=== PATIENT | male | born 1995 | race Hispanic/Latino ===

== ENCOUNTER 2019-08-30 17:30 | Emergency (ER) | payer OTHER ==
[2019-08-30] MEDS: NITROGLYCERIN 0.4 MG 25 EA TAB SL ONE (17:48)
[2019-08-30] MEDS: ONDANSETRON INJ 4 MG/2 ML VIAL IV ONE (17:50)
[2019-08-30 17:51] VITALS: O2SAT 99
[2019-08-30] MEDS: SODIUM CHLORIDE 0.9% (FLUSH) 10 ML SYG IV PRN (17:56)
[2019-08-30] MEDS: ASPIRIN TABLET 325 MG TAB PO ONE (17:57)
--- NOTE | 2019-08-30 18:00 | RAD ---
EXAM DESCRIPTION: Chest,1 View CLINICAL HISTORY: 23 years Female sob/cp COMPARISON: None TECHNIQUE: Portable AP view of the chest is obtained. FINDINGS IN THE CHEST: Heart: Allowing for magnification factors related to AP portable technique and body habitus, the heart is normal in size and configuration. Vasculature: [] There is no evidence of aortic aneurysm or acute findings. The pulmonary vascularity is normal. Mediastinum: No evidence of mass or adenopathy. Lungs: There is no focal consolidation in the lungs. Pleura: There are no pleural effusions. There are no pneumothoraces. Osseous structures: No evidence of acute fracture or other significant osseous abnormalities. Tubes and catheters: None Chest wall: Unremarkable. Visualized Abdomen: Unremarkable. IMPRESSION: NO SIGNIFICANT RADIOGRAPHIC ABNORMALITIES IN THE CHEST. Remainder of findings as described above. Electronically signed by: Kerry Raya MD 08/30/2019 5:59 PM EDUCATIONAL TECHNICIAN
--- NOTE | 2019-08-30 18:24 | ED.PDOC ---
History of Present Illness - General Chief Complaint: Chest Pain/AL Stated Complaint: shortness of breath and palpitations Time Seen by Provider: 08/30/19 17:36 Source: patient, RN notes reviewed, Vital Signs reviewed, family - , police Exam Limitations: no limitations - History of Present Illness Initial Comments: patient is a 23-year-old male who presents with complaints of acute onset of shortness of breath closely followed by chest tightness and generalized weakness. Patient was returning from a class in [place], when he had acute onset shortness of breath with associated palpitations and then came chest tightness. The tightness did not radiate. It was substernal. It was no associated nausea, vomiting, diarrhea, headache or diaphoresis. Timing/Duration: 1 hour Severity: moderate Improving Factors: nothing Worsening Factors: nothing Associated Symptoms: chest pain, shortness of breath, weakness Allergies/Adverse Reactions: Allergies NO KNOWN ALLERGY Allergy (Verified 08/30/19 17:35) Home Medications: Ambulatory Orders Magnesium [Magnesium 400 mg] 1 tab PO DAILY #3 tab 08/30/19 Potassium Chloride [K-Tab] 40 meq PO DAILY #6 tab 08/30/19 Review of Systems - Review of Systems Constitutional: States: see HPI, weakness EENTM: States: no symptoms reported, see HPI Respiratory: States: see HPI, short of breath Gastrointestinal/Abdominal: States: see HPI, abdominal pain Genitourinary: States: no symptoms reported Musculoskeletal: States: no symptoms reported Skin: States: no symptoms reported Neurological: States: anxiety, tingling - hands and feet Endocrine: States: no symptoms reported Hematologic/Lymphatic: States: no symptoms reported All other Systems: Reviewed and Negative Past Medical History (General) - Patient Medical History Hx Seizures: No Hx Stroke: No Hx of COPD: No Hx Cardiac Disorders: No Hx Congestive Heart Failure: No Hx Thyroid Disease: No Hx Renal Disease: No Surgical History: no surgical history - Social History Hx Tobacco Use: No Family Medical History - Family History Mother Family History: Unknown Physical Exam - Physical Exam General Appearance: Alert, Anxious, Well Developed, Well Groomed, Well Hydrated, Well Nourished Eye Exam: bilateral normal Ears, Nose, Throat: hearing grossly normal, normal ENT inspection, normal pharynx Neck: non-tender, full range of motion, supple, normal inspection Respiratory: chest non-tender, lungs clear, normal breath sounds, no respiratory distress, no accessory muscle use Cardiovascular/Chest: normal peripheral pulses, regular rate, rhythm, no edema, no gallop, no JVD, no murmur Peripheral Pulses: radial,right: 2+, radial,left: 2+ Back Exam: normal inspection, no CVA tenderness, no vertebral tenderness Extremity: normal range of motion, non-tender, normal inspection, no pedal edema, no calf tenderness 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 08/30/19 19:39 Patient is markedly improved. It appears that his palpitations may have been caused by hypomagnesemia and hypokalemia. Patient has been repleted here in the ED and is improved. Plan discharge home with follow-up PCP. I've discussed the plan of care with the patient he voices understanding and agreement. Barvo Padilla M.D. #[id number] - Results/Orders Results/Orders: EXAM DESCRIPTION: Chest,1 View CLINICAL HISTORY: 23 years Female sob/cp COMPARISON: None TECHNIQUE: Portable AP view of the chest is obtained. FINDINGS IN THE CHEST: Heart: Allowing for magnification factors related to AP portable technique and body habitus, the heart is normal in size and configuration. Vasculature: [] There is no evidence of aortic aneurysm or acute findings. The pulmonary vascularity is normal. Mediastinum: No evidence of mass or adenopathy. Lungs: There is no focal consolidation in the lungs. Pleura: There are no pleural effusions. There are no pneumothoraces. Osseous structures: No evidence of acute fracture or other significant osseous abnormalities. Tubes and catheters: None Chest wall: Unremarkable. Visualized Abdomen: Unremarkable. IMPRESSION: NO SIGNIFICANT RADIOGRAPHIC ABNORMALITIES IN THE CHEST. Remainder of findings as described above. Electronically signed by: Kerry Raya MD 08/30/2019 5:59 PM 08/30/19 17:36 Telemetry .ONCE Sodium Chloride 0.9% (Flush) [Saline Flush Syringe] 10 ml IV PRN PRN EKG Stat Pulse Ox Stat Laboratory Results - last 24 hr 12/18/19 17:40 WBC 10.1 RBC 5.30 Hgb 15.6 Hct 46.4 MCV 87.5 MCH 29.4 MCHC 33.6 RDW 13.8 Plt Count 297 MPV 9.0 Absolute Neuts (auto) 4.00 Absolute Lymphs (auto) 4.70 H Absolute Monos (auto) 0.80 Absolute Eos (auto) 0.50 H Absolute Basos (auto) 0.10 Neutrophils % 39.9 L Lymphocytes % 46.5 Monocytes % 8.0 Eosinophils % 4.9 Basophils % 0.7 PT 9.9 INR 0.99 PTT (SP) 23.6 Sodium 138 Potassium 2.9 L Chloride 102 Carbon Dioxide 25 Anion Gap 13.9 BUN 16 Creatinine 1.11 BUN/Creatinine Ratio 14.4 Random Glucose 121 H Serum Osmolality 278.1 Calcium 9.3 Magnesium 1.7 L Creatine Kinase 364 H* CK-MB (CK-2) 1.9 CK-MB (CK-2) % Not Reportable Troponin I < 0.02 B-Natriuretic Peptide 9.7 EKG performed 30 August 2019 at 1735 hrs.: Normal sinus rhythm with sinus arrhythmia at 78 bpm, normal axis deviation, no ST or T wave changes, normal EKG. No comparison EKG. Departure - Departure Clinical Impression: Palpitations, Hypomagnesemia Disposition: Discharge to Home or Self Care Condition: Good Departure Forms: ED Discharge - Pt. Copy, Patient Portal Self Enrollment Instructions: DI for Chest Pain Prescriptions: Magnesium [Magnesium 400 mg] 1 tab PO DAILY #3 tab Potassium Chloride [K-Tab] 40 meq PO DAILY #6 tab Home Medications: Ambulatory Orders Magnesium [Magnesium 400 mg] 1 tab PO DAILY #3 tab 08/30/19 Potassium Chloride [K-Tab] 40 meq PO DAILY #6 tab 08/30/19
[2019-08-30] MEDS ORDERED: MAGNESIUM SULFATE PREMIX 2GM 50 ML IVPB ONE (18:45)
[2019-08-30] MEDS: POTASSIUM CHLORIDE 20 MEQ TAB PO ONE (18:48)
[2019-08-30] MEDS: MAGNESIUM SULFATE PREMIX 2GM 2 GM in PREMIX BAG 1 BAG IVPB ONE (18:48)
[2019-08-30 20:09] VITALS: BP 131/75; TEMP 97.9
== END 2019-08-30 20:00 | disposition home or self-care (01) ==
LOC: ER 17:30 → EDSEX 17:30 → ER 20:00
DX: R00.2 Palpitations (principal); E83.42 Hypomagnesemia; R07.2 Precordial pain; R06.02 Shortness of breath; R53.1 Weakness
CPT/HCPCS: 71045; 80048; 82550; 82553; 83880; 84484; 85025; 85610; 85730; 93005; 94760; J2405; J3475

== ENCOUNTER 2019-09-04 06:08 | Day surgery (SDC) | payer SELFPAY ==
[2019-09-04] MEDS ORDERED: LACTATED RINGERS 1,000 ML ONE (06:55)
[2019-09-04] MEDS ORDERED: MIDAZOLAM INJ 2 MG/2 ML VIAL ONE (08:17)
--- NOTE | 2019-09-04 08:51 | OP ---
DATE OF PROCEDURE: 09/04/19 PREOPERATIVE DIAGNOSIS: 1. Odynophagia with recent popping of a balloon, possible foreign body. POSTOPERATIVE DIAGNOSIS: 1. Pharyngitis. 2. Esophagitis. PROCEDURE: 1. EGD with biopsy, distal esophagus. SURGEON: Leonides Daniels MD ANESTHESIA: General. FINDINGS: Upon entering, no balloon fragment was found. The patient had multiple 1 to 2 cm inflammatory lesions in his pharynx. On withdrawal, one of these was found to be reddened and slight ooze, but not active. No obvious purulence associated with these. In checking the recesses, the epiglottis, no foreign body was seen. The proximal esophagus appeared normal. At the GE junction, the distal esophagus did have a couple of areas of inflammation. Biopsy was taken of one of these lesions. The stomach and the duodenum appeared normal. Again, upon withdrawal, confirming the findings as above. FINAL DIAGNOSIS: 1. Pharyngitis. 2. Esophagitis. PLAN: I will notify his primary care physician of the findings and possibly an ENT referral. #[id number] [facility]
[2019-09-04 09:10] VITALS: BP 101/44
[2019-09-04 09:40] VITALS: TEMP 97.9; O2SAT 99
[2019-09-04] MEDS ORDERED: PROPOFOL 200 MG/20 ML VIAL IV ONE (10:00)
[2019-09-04] MEDS ORDERED: PHENYLEPHRINE INJ 1ML 10 MG/ML VIAL IV ONE (10:00)
[2019-09-04] MEDS ORDERED: LIDOCAINE 1% 10 ML VIAL INJ ONE (10:00)
== END 2019-09-04 08:25 | disposition home or self-care (01) ==
LOC: AMB 06:08
PROVIDERS: ATTEND Surgery
DX: K20.9 Esophagitis, unspecified (principal); I25.2 Old myocardial infarction; F41.9 Anxiety disorder, unspecified
CPT/HCPCS: 00731; 43239; J2250; J3490; J7120

== ENCOUNTER 2020-10-03 00:48 | Emergency (ER) | payer OTHER ==
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
[2020-10-03 01:07] VITALS: TEMP 97.9
--- NOTE | 2020-10-03 01:13 | RAD ---
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 TECHNIQUE: XR HIP 2 OR MORE VIEWS 10/03/2020 12:58 AM SALES TRAINEE FINDINGS: There is no fracture. Joint spaces are preserved. Soft tissues are unremarkable. IMPRESSION: No acute osseous findings. Electronically signed by: Morteza Infante MD 10/03/2020 1:11 AM SALES TRAINEE
[2020-10-03] MEDS ORDERED: KETOROLAC TROMETHAMINE INJ 60 MG/2 ML VIAL IM ONE (01:17)
[2020-10-03 01:48] VITALS: BP 118/90; O2SAT 98
== END 2020-10-03 01:49 | disposition home or self-care (01) ==
LOC: ER 00:48
DX: S70.01XA Contusion of right hip, initial encounter (principal); W01.198A Fall on same level from slipping, tripping and stumbling with subsequent striking against other object, initial encounter; Y99.0 Civilian activity done for income or pay; Y92.9 Unspecified place or not applicable
CPT/HCPCS: 73502; J1885

== ENCOUNTER 2020-10-03 03:23 | Emergency (ER) | payer OTHER ==
[2020-10-03 03:33] VITALS: TEMP 98.3
--- NOTE | 2020-10-03 03:54 | CT ---
EXAM: Head HISTORY: 24 years Male post fall, headache COMPARISON: None TECHNIQUE: Contiguous axial images of the head were obtained from the skull base through the vertex without IV contrast followed by multiplanar reformats. This exam was performed according to our departmental dose-optimization program, which includes automated exposure control, adjustment of the mA and/or kV according to patient size and/or use of iterative reconstruction technique. FINDINGS: Brain volume is commensurate with patient age. No hydrocephalus. No midline shift, mass effect or abnormal extraaxial collection. No acute intracranial hemorrhage or infarct. White matter is within normal limits. Orbital contents are unremarkable. The paranasal sinuses and mastoid air cells are well pneumatized. No acute calvarial abnormality. IMPRESSION: 1. No acute intracranial pathology. Electronically signed by: Foreign Christensen MD 10/03/2020 3:53 AM [facility]
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
[2020-10-03 04:24] VITALS: BP 134/80; O2SAT 98
== END 2020-10-03 04:24 | disposition home or self-care (01) ==
LOC: ER 03:23
DX: S00.03XA Contusion of scalp, initial encounter (principal); W18.39XA Other fall on same level, initial encounter; Y99.0 Civilian activity done for income or pay; Y92.9 Unspecified place or not applicable